=== PATIENT | male | born 1940 | race Caucasian/White ===

== ENCOUNTER 2017-04-30 09:05 | Outpatient (CLI) | payer MEDICARE, OTHER ==
[2017-04-30 12:43] LABS: BASOPHILS % (AUTO) 0.6 %; EOSINOPHILS # (AUTO) 0.3 10^3/uL (0.0-0.7); EOSINOPHILS % (AUTO) 3.2 %; HGB - HEMOGLOBIN 15.5 g/dL (14.0-18.0); LYMPHOCYTES # (AUTO) 1.3 10^3/uL (1.5-3.5); LYMPHOCYTES % (AUTO) 15.8 %; MEAN CORPUSCULAR HEMOGLOBIN 27.1 pg (27.0-31.0); MEAN CORPUSCULAR HGB CONC 33.6 g/dL (32.0-36.0); MEAN CORPUSCULAR VOLUME 80.7 fL (80.0-94.0); MEAN PLATELET VOLUME 8.7 fL (7.4-11.4); MONOCYTES # (AUTO) 0.8 10^3/uL (0.0-1.0); MONOCYTES % (AUTO) 9.8 %; NEUTROPHILS # (AUTO) 5.9 10^3/uL (1.5-6.6); NEUTROPHILS % (AUTO) 70.6 %; PLT - PLATELET COUNT 222 10^3/uL (130-450); RED CELL DISTRIBUTION WIDTH 14.2 % (12.0-15.0); WHITE BLOOD COUNT 8.3 x10^3/uL (4.8-10.8)
[2017-04-30 13:14] LABS: ALBUMIN 4.2 g/dL (3.2-5.5); ALBUMIN/GLOBULIN RATIO 1.4 (1.0-2.2); ALKALINE PHOSPHATASE 71 IU/L (42-121); ALT ALANINE AMINOTRANSFERASE 14 IU/L (10-60); AST ASPARTATE AMINOTRANSFERASE 13 IU/L (10-42); BUN - BLOOD UREA NITROGEN 17 mg/dL (6-20); CALCIUM 9.6 mg/dL (8.5-10.3); CARBON DIOXIDE - CO2 28 mmol/L (21-32); CHLORIDE 104 mmol/L (101-111); CHOLESTEROL 204 mg/dL; CREATININE 0.9 mg/dL (0.6-1.2); GFR - MDRD 82 (>89); GLUCOSE 93 mg/dL (70-100); HDL CHOLESTEROL 41 mg/dL; LDL CHOLESTEROL,CALCULATED 149 mg/dL; LDL/HDL RATIO 3.6 (<3.6); SODIUM 138 mmol/L (135-145); TOTAL PROTEIN 7.1 g/dL (6.7-8.2); VLDL CHOLESTEROL 14 mg/dL
== END 2017-04-30 09:06 ==
LOC: LAB.WCP 09:05
PROVIDERS: ATTEND Physician Assistant Medical
DX: Z51.81 Encounter for therapeutic drug level monitoring (principal); I10 Essential (primary) hypertension; E78.5 Hyperlipidemia, unspecified; Z12.5 Encounter for screening for malignant neoplasm of prostate
CPT/HCPCS: 36415; 80053; 80061; 84443; 85025; G0103; 83721; 84153

== ENCOUNTER 2017-05-18 13:22 | Outpatient (CLI) | payer MEDICARE, OTHER | END 2017-05-18 13:23 | disposition home or self-care (01) | LOC: DI 13:22 | PROVIDERS: ATTEND Family Medicine | DX: I48.91 Unspecified atrial fibrillation (principal); I51.7 Cardiomegaly | CPT/HCPCS: 93306 ==

== ENCOUNTER 2017-05-24 10:03 | Outpatient (CLI) | payer MEDICARE, OTHER ==
[2017-05-24] MEDS ORDERED: NITROGLYCERIN SL 0.4 MG TABLET SL ONE (10:04)
[2017-05-24] MEDS ORDERED: REGADENOSON 0.4 MG/5 ML SYRINGE IVP ONE ×2 (11:56→16:51)
--- NOTE | 2017-05-24 15:27 | CARDIAC PROCEDURE NOTE ---
DATE OF SERVICE: 05/24/2017 Physician: ROSSANA Alvarado PRIMARY CARE PHYSICIAN: Dr. Bernard Nunes PROCEDURE: Pharmaceutical stress test. PROCEDURE SYMPTOMS: New onset atrial fibrillation. CARDIAC RISK FACTORS: Include age and hypertension. PREVIOUS CARDIAC PROCEDURES: Include ETT. CURRENT SYMPTOMATOLOGY: None. MEDICATIONS HELD: None. CLINICAL HISTORY: A 77-year-old male without known coronary artery disease. INITIAL RESTING VITAL SIGNS: Blood pressure 164/90, heart rate 84, height 71 inches, weight 194 pounds, BMI 26.9. PROCEDURE AND FINDINGS: Patient identity and date verified, consent signed, pharmacologic check. Pharmacologic stress testing performed with Lexiscan at a dose of 0.4 mg/5 mL IV push. The heart rate lai to 110 beats per minute and the maximum blood pressure was 164/ 90. The patient developed symptoms about 5 minutes after receiving Lexiscan including 7/10 chest pain experienced as a tightening around his lower chest. He received nitroglycerin 0.4 mg sublingual and his chest pain dwindled to less than 1/10. He also experienced some dizziness and a headache. The resting ECG demonstrated a controlled atrial fibrillation with intraventricular conduction delay. There was no ST segment depression or T wave inversion. There was no ectopy. FINAL IMPRESSION 1. Overall quality of this study was good. 2. Negative stress electrocardiogram for ischemia by electrocardiographic criteria. 3. Nondiagnostic stress test clinically for angina. 4. No ectopy. 5. Await myocardial perfusion scan results. TD: 05/24/2017 15:26 JAMESON
--- NOTE | 2017-05-24 17:06 | Nuclear Medicine Report ---
EXAM: SINGLE-ISOTOPE PHARMACOLOGICAL STRESS TEST WITH REGADENOSON. SINGLE-ISOTOPE AND ONE-DAY REST/STRESS M YOCARDIAL PERFUSION SCANS WITH TOMOGRAPHIC IMAGING, QUANTITATIVE ANALYSIS EXAM DATE: 05/24/2017 04:55 PM. CLINICAL HISTORY: Atrial fibrillation. COMPARISON: None. TECHNIQUE: After the intravenous administration of 9.8 mCi of Tc-99m sestamibi, a rest myocardial perfusion scan was done with tomography. Motion correction was applied when appropriate. After an appropriate delay, pharmacological stress was performed with the infusion of 0.4 mg regadeno son per protocol. According to protocol, 37 mCi of Tc-99m sestamibi was injected for stress myocardia l perfusion scan. Motion correction was applied when appropriate. Gated images for wall motion analysis and ejection fraction calculation could not be obtained because of irregular heart beat. FINDINGS: Images show a small defect in distal inferior wall which may be slightly larger on the stre ss images compared to the rest images. No other convincing fixed or reversible perfusion defects. IMPRESSION: Small, mild distal inferior wall defect which may be slightly larger on stress compared to rest. No o ther convincing fixed or reversible perfusion defects. [facility] Referring Provider Line: [phone] SITE ID: [id number]
[2017-05-24 17:30] VITALS: BP 156/74
== END 2017-05-24 10:04 | disposition home or self-care (01) ==
LOC: DI 10:03
PROVIDERS: ATTEND Family Medicine
DX: I48.91 Unspecified atrial fibrillation (principal); I10 Essential (primary) hypertension; R07.89 Other chest pain
CPT/HCPCS: 78452; 93017; A9270; A9500; J2785

== ENCOUNTER 2018-01-11 08:00 | Outpatient (CLI) | payer MEDICARE, OTHER ==
[2018-01-11 14:39] LABS: ALBUMIN 3.9 g/dL (3.2-5.5); ALBUMIN/GLOBULIN RATIO 1.3 (1.0-2.2); ALKALINE PHOSPHATASE 72 IU/L (42-121); ALT ALANINE AMINOTRANSFERASE 16 IU/L (10-60); AST ASPARTATE AMINOTRANSFERASE 15 IU/L (10-42); BILIRUBIN,TOTAL 0.3 mg/dL (0.2-1.0); BUN - BLOOD UREA NITROGEN 17 mg/dL (6-20); CALCIUM 9.6 mg/dL (8.5-10.3); CARBON DIOXIDE - CO2 28 mmol/L (21-32); CHLORIDE 103 mmol/L (101-111); CHOL/HDL RATIO 5.2 (<5.0); CHOLESTEROL 206 mg/dL; CREATININE 0.9 mg/dL (0.6-1.2); GFR - MDRD 82 (>89); GLUCOSE 89 mg/dL (70-100); HDL CHOLESTEROL 40 mg/dL; LDL CHOLESTEROL,CALCULATED 144 mg/dL; LDL/HDL RATIO 3.6 (<3.6); SODIUM 138 mmol/L (135-145); TOTAL PROTEIN 6.8 g/dL (6.7-8.2); VLDL CHOLESTEROL 22 mg/dL
[2018-01-11 14:45] LABS: BASOPHILS % (AUTO) 0.2 %; EOSINOPHILS # (AUTO) 0.4 10^3/uL (0.0-0.7); HGB - HEMOGLOBIN 15.2 g/dL (14.0-18.0); LYMPHOCYTES # (AUTO) 1.3 10^3/uL (1.5-3.5); LYMPHOCYTES % (AUTO) 16.5 %; MEAN CORPUSCULAR HEMOGLOBIN 27.6 pg (27.0-31.0); MEAN CORPUSCULAR HGB CONC 32.4 g/dL (32.0-36.0); MEAN CORPUSCULAR VOLUME 85.2 fL (80.0-94.0); MONOCYTES # (AUTO) 0.8 10^3/uL (0.0-1.0); MONOCYTES % (AUTO) 10.7 %; NEUTROPHILS # (AUTO) 5.3 10^3/uL (1.5-6.6); NEUTROPHILS % (AUTO) 67.6 %; PLT - PLATELET COUNT 202 10^3/uL (130-450); RED BLOOD COUNT 5.51 10^6/uL (4.70-6.10); RED CELL DISTRIBUTION WIDTH 14.7 % (12.0-15.0); WHITE BLOOD COUNT 7.8 x10^3/uL (4.8-10.8)
[2018-01-11 15:38] LABS: PSA FREE 0.63 ng/mL (0.16-2.81)
[2018-01-11 15:39] LABS: PSA TOTAL 2.5 ng/mL (0.000-2.000)
== END 2018-01-11 08:01 | disposition home or self-care (01) ==
LOC: LAB.WCP 08:00
PROVIDERS: ATTEND Family Medicine
DX: I25.10 Atherosclerotic heart disease of native coronary artery without angina pectoris (principal); R97.20 Elevated prostate specific antigen [PSA]
CPT/HCPCS: 36415; 80053; 80061; 83721; 84154; 85025

== ENCOUNTER 2018-04-21 11:17 | Emergency (ER) | payer MEDICARE, OTHER ==
[2018-04-21 11:28] VITALS: BP 160/111
[2018-04-21] MEDS ORDERED: GLUCAGON 1 MG/ML VIAL IVP STA (12:03)
--- NOTE | 2018-04-21 12:05 | ED Physician Documentation ---
History of Present Illness - Stated complaint Stated Complaint: DIFFICULTY SWALLOWING/POSS BLOCKAGE - Chief complaint Chief Complaint: General - History obtained from History obtained from: Patient - History of Present Illness Timing: Last night (78-year-old gentleman with history of esophageal strictures, dilated 3 times in the 6 years ago. He was eating stew last night and feels like it stuck basically at the level of the clavicles and is unable to swallow his secretions but has no airway difficulty.) Review of Systems Throat: reports: Reviewed and negative Cardiac: reports: Reviewed and negative Respiratory: reports: Reviewed and negative PD PAST MEDICAL HISTORY - Past Medical History Cardiovascular: Hypertension, High cholesterol, Atrial fibrillation Respiratory: Asthma, Other - Past Surgical History General: Appendectomy - Allergies Allergies/Adverse Reactions: Allergies Allergy/AdvReac Type Severity Reaction Status Date / Time No Known Drug Allergies Allergy Verified 04/21/18 11:27 - Social History Does the pt smoke?: No Smoking Status: Never smoker PD ED PE NORMAL - Vitals Vital signs reviewed: Yes - General General: Alert and oriented X 3, No acute distress, Other (Speaking fine but holding suction to manage his secretions.) - HEENT HEENT: PERRL, EOMI, Pharynx benign - Neck Neck: Supple, no meningeal sign, No bony TTP, No bruit - Cardiac Cardiac: Other (Irregularly irregular without murmur) - Respiratory Respiratory: No respiratory distress, Clear bilaterally - Abdomen Abdomen: Soft, Non tender - Back Back: No CVA TTP, No spinal TTP - Derm Derm: Normal color, Warm and dry - Extremities Extremities: No edema, No calf tenderness / cord - Neuro Neuro: Alert and oriented X 3, Normal speech Results - Vitals Vitals: Vital Signs - 24 hr 04/21/18 11:22 Temperature 36.2 C L Heart Rate 70 Respiratory 14 Rate Blood Pressure 160/111 H O2 Saturation 100 Oxygen O2 Source Room air - Labs Labs: Laboratory Tests 04/21/18 04/21/18 04/21/18 12:06 12:06 12:06 WBC 7.9 RBC 5.66 Hgb 15.7 Hct 47.9 MCV 84.6 MCH 27.7 MCHC 32.8 RDW 14.2 Plt Count 222 MPV 9.0 Neut # (Auto) 5.9 Lymph # (Auto) 0.9 L Miller # (Auto) 0.9 Eos # (Auto) 0.2 Baso # (Auto) 0.0 Absolute Nucleated RBC 0.00 Nucleated RBC % 0.0 PT 15.5 H INR 1.4 H Sodium 138 Potassium 4.2 Chloride 105 Carbon Dioxide 27 Anion Gap 6.0 BUN 16 Creatinine 0.9 Estimated GFR (MDRD) 82 L Glucose 105 H Calcium 9.7 Total Bilirubin 1.0 AST 14 ALT 14 Alkaline Phosphatase 74 Total Protein 7.1 Albumin 4.0 Globulin 3.1 Albumin/Globulin Ratio 1.3 Lipase 29 PD MEDICAL DECISION MAKING - ED course ED course: After the administration of IV glucagon he vomited but felt like the food bolus in the past and was able to tolerate liquids without persistent difficulties. Departure - Departure Disposition: 01 Home, Self Care Clinical Impression: Esophageal obstruction due to food impaction Condition: Good Record reviewed to determine appropriate education?: Yes Instructions: ED Foreign Body Esophageal Rslv Comments: As discussed it seems reasonable for you to follow-up with a brake repairer. One option would be [facility] in [place], their phone number is [phone]. Chew your food well and return if worse. Your blood pressure was elevated today on check into the emergency department. This does not mean that you have hypertension, it is a common phenomenon to come to the emergency department and have elevated blood pressure. I recommend that you see your primary care physician within the week to have it rechecked when you are feeling better.
[2018-04-21] MEDS ORDERED: GLUCAGON 1 MG/ML VIAL ONE (12:23)
[2018-04-21 12:30] LABS: BASOPHILS % (AUTO) 0.3 %; EOSINOPHILS # (AUTO) 0.2 10^3/uL (0.0-0.7); EOSINOPHILS % (AUTO) 3.1 %; HGB - HEMOGLOBIN 15.7 g/dL (14.0-18.0); LYMPHOCYTES # (AUTO) 0.9 10^3/uL (1.5-3.5); MEAN CORPUSCULAR HEMOGLOBIN 27.7 pg (27.0-31.0); MEAN CORPUSCULAR HGB CONC 32.8 g/dL (32.0-36.0); MEAN CORPUSCULAR VOLUME 84.6 fL (80.0-94.0); MONOCYTES # (AUTO) 0.9 10^3/uL (0.0-1.0); MONOCYTES % (AUTO) 11.2 %; NEUTROPHILS # (AUTO) 5.9 10^3/uL (1.5-6.6); NEUTROPHILS % (AUTO) 74.4 %; PLT - PLATELET COUNT 222 10^3/uL (130-450); RED BLOOD COUNT 5.66 10^6/uL (4.70-6.10); RED CELL DISTRIBUTION WIDTH 14.2 % (12.0-15.0); WHITE BLOOD COUNT 7.9 x10^3/uL (4.8-10.8)
[2018-04-21 12:35] LABS: INR 1.4 (0.8-1.2); PT - PROTHROMBIN TIME 15.5 secs (9.9-12.6)
[2018-04-21 12:42] LABS: ALBUMIN/GLOBULIN RATIO 1.3 (1.0-2.2); CALCIUM 9.7 mg/dL (8.5-10.3); CREATININE 0.9 mg/dL (0.6-1.2); TOTAL PROTEIN 7.1 g/dL (6.7-8.2)
== END 2018-04-21 13:04 | disposition home or self-care (01) ==
LOC: ED 11:17
DX: K22.2 Esophageal obstruction (principal); I10 Essential (primary) hypertension; Z86.79 Personal history of other diseases of the circulatory system
CPT/HCPCS: 36415; 80053; 83690; 85025; 85610; 96374; 99283

== ENCOUNTER 2018-09-16 08:00 | Outpatient (CLI) | payer MEDICARE ==
[2018-09-16 15:41] LABS: CALCIUM 9.6 mg/dL (8.5-10.3)
[2018-09-16 15:59] LABS: BASOPHILS % (AUTO) 0.4 %; EOSINOPHILS # (AUTO) 0.3 10^3/uL (0.0-0.7); EOSINOPHILS % (AUTO) 3.9 %; HGB - HEMOGLOBIN 14.7 g/dL (14.0-18.0); LYMPHOCYTES % (AUTO) 14.5 %; MEAN CORPUSCULAR HEMOGLOBIN 27.2 pg (27.0-31.0); MEAN CORPUSCULAR HGB CONC 31.7 g/dL (32.0-36.0); MEAN PLATELET VOLUME 9.4 fL (7.4-11.4); MONOCYTES # (AUTO) 0.8 10^3/uL (0.0-1.0); NEUTROPHILS # (AUTO) 5.1 10^3/uL (1.5-6.6); NEUTROPHILS % (AUTO) 70.2 %; PLT - PLATELET COUNT 195 10^3/uL (130-450); RED BLOOD COUNT 5.41 10^6/uL (4.70-6.10); RED CELL DISTRIBUTION WIDTH 14.9 % (12.0-15.0); WHITE BLOOD COUNT 7.2 x10^3/uL (4.8-10.8)
== END 2018-09-16 23:59 | disposition home or self-care (01) ==
LOC: LAB.WCP 08:00
PROVIDERS: ATTEND Family Medicine
DX: I48.91 Unspecified atrial fibrillation (principal)
CPT/HCPCS: 36415; 80048; 85025

== ENCOUNTER 2018-09-26 10:09 | Outpatient (CLI) | payer MEDICARE | END 2018-09-26 23:59 | disposition home or self-care (01) | LOC: LAB.WCP 10:09 | PROVIDERS: ATTEND Family Medicine | DX: E04.1 Nontoxic single thyroid nodule (principal) | CPT/HCPCS: 36415; 84443 ==

== ENCOUNTER 2018-10-11 07:54 | Outpatient (CLI) | payer MEDICARE ==
--- NOTE | 2018-10-11 14:06 | Ultrasound Report ---
Reason: THYROID NODULE,JAW PAIN,ATRIAL FIBRILLATION,CAD Procedure Date: 10/11/2018 Accession Number: [id number] / [id number] Procedure: US - Head or Neck Soft Tissue CPT Code: FULL RESULT: EXAM: THYROID ULTRASOUND EXAM DATE: 10/11/2018 08:02 AM. CLINICAL HISTORY: THYROID NODULE,JAW PAIN,ATRIAL FIBRILLATION,CAD. COMPARISON: None. TECHNIQUE: Real time sonographic imaging of the thyroid was performed by the lockstitch shoulder joiner. Multiple payable representative static images were saved for review. FINDINGS: THYROID GLAND: Right Lobe: 3.9 x 1.6 x 1.7 cm, volume 4.9 cc. Normal background echotexture. Right Lobe Nodules: None. Left Lobe: 3.4 x 1.7 x 1.8 cm, volume 5 cc. Normal background echotexture. Left Lobe Nodules: None. Isthmus: 0.4 cm AP. Isthmic Nodules: None. LYMPH NODES: No adenopathy demonstrated in the central or lateral compartment. OTHER: None. IMPRESSION: Normal thyroid [facility]
--- NOTE | 2018-10-11 14:36 | Ultrasound Report ---
Reason: THYROID NODULE,JAW PAIN,ATRIAL FIBRILLATION,CAD Procedure Date: 10/11/2018 Accession Number: [id number] / [id number] Procedure: US - Carotid Doppler Complete CPT Code: FULL RESULT: EXAM: BILATERAL CAROTID AND VERTEBRAL ARTERY DUPLEX DOPPLER ULTRASOUND: EXAM DATE: 10/11/2018 08:30 AM CLINICAL HISTORY: THYROID NODULE, JAW PAIN, ATRIAL FIBRILLATION, CAD. COMPARISON: None. TECHNIQUE: Grayscale imaging, color Doppler, and duplex spectral Doppler were used to evaluate the carotid and vertebral arteries bilaterally. Static images were obtained. FINDINGS: Right common carotid artery has intimal hyperplasia and soft plaque. No significant stenosis. At the bifurcation, there is non-calcified plaque extending into the proximal right ICA and ECA without significant stenosis. Left common carotid artery has intimal hyperplasia and there is mild soft plaque extending into the origin of the left internal carotid artery without significant stenosis. Normal antegrade flow is present in bilateral vertebral arteries. VELOCITIES (cm/sec): Right CCA mid: PSV 63 cm/sec CCA dist: PSV 49 cm/sec ICA prox: PSV 53 cm/sec, EDV 16 cm/sec ICA mid: PSV 74 cm/sec, EDV 26 cm/sec ICA dist: PSV 64 cm/sec, EDV 18 cm/sec ECA: PSV 74 cm/sec Vert: PSV 43 cm/sec ICA/CCA: 1.2 Left CCA mid: PSV 66 cm/sec CCA dist: PSV 58 cm/sec ICA prox: PSV 58 cm/sec, EDV 17 cm/sec ICA mid: PSV 63 cm/sec, EDV 28 cm/sec ICA dist: PSV 47 cm/sec, EDV 19 cm/sec ECA: PSV 83 cm/sec Vert: PSV 40 cm/sec ICA/CCA: 0.9 ICA diameter stenosis: Right: <50% by velocity and <70% by NASCET criteria. Left: <50% by velocity and <70% by NASCET criteria. IMPRESSION: 1. No significant bilateral carotid artery plaquing. 2. In the right carotid artery there are no elevated carotid artery velocities to suggest hemodynamically significant stenosis. 3. In the left carotid artery there are no elevated carotid artery velocities to suggest hemodynamically significant stenosis. 4. Normal antegrade flow is present in bilateral vertebral arteries. General Recommendations: Stenosis =50% ICA - Follow-up ultrasound 6-12 months Stenosis <50% ICA - High Risk Patient with plaque - Follow-up ultrasound 1-2 years Normal Study but High Risk Patient - Follow-up ultrasound 3-5 years Management recommendations and diagnostic criteria are based on current IAC endorsed standards in Carotid Artery Stenosis: Grayscale and Doppler Ultrasound Diagnosis. Validated velocity measurements with angiographic measurements and velocity criteria are extrapolated from diameter data as defined by the Society of Radiologists in Ultrasound Consensus Conference Radiology 2003; 229;340-346. [facility]
== END 2018-10-11 07:55 | disposition home or self-care (01) ==
LOC: DI 07:54
PROVIDERS: ATTEND Family Medicine
DX: E04.1 Nontoxic single thyroid nodule (principal); R68.84 Jaw pain; I48.91 Unspecified atrial fibrillation; I25.10 Atherosclerotic heart disease of native coronary artery without angina pectoris
CPT/HCPCS: 76536; 93880

== ENCOUNTER 2018-10-31 15:32 | Outpatient (CLI) | payer MEDICARE ==
[2018-10-31 16:02] LABS: CHOL/HDL RATIO 4.5 (<5.0); CHOLESTEROL 186 mg/dL; HDL CHOLESTEROL 41 mg/dL; LDL CHOLESTEROL,CALCULATED 121 mg/dL; VLDL CHOLESTEROL 24 mg/dL
--- NOTE | 2018-11-01 10:53 | XRAY Report ---
Reason: SHORTNESS OF BREATH Procedure Date: 10/31/2018 Accession Number: [id number] / [id number] Procedure: XR - Chest 2 View X-Ray CPT Code: 77389 FULL RESULT: EXAM: CHEST RADIOGRAPHY EXAM DATE: 10/31/2018 04:15 PM. CLINICAL HISTORY: SHORTNESS OF BREATH. COMPARISON: CHEST 2 VIEW PA/LAT 05/10/2017 3:56 PM. TECHNIQUE: 2 views. FINDINGS: Lungs/Pleura: No focal opacities evident. No pleural effusion. No pneumothorax. Normal volumes. Mediastinum: Borderline cardiomegaly. There is thoracic aortic tortuosity. Other: None. IMPRESSION: No acute intrathoracic plain film abnormality. [facility]
== END 2018-10-31 15:33 | disposition home or self-care (01) ==
LOC: LAB 15:32 → DI 15:33
PROVIDERS: ATTEND Internal Medicine Cardiovascular Disease
DX: R06.02 Shortness of breath (principal); E78.5 Hyperlipidemia, unspecified
CPT/HCPCS: 36415; 71046; 80061; 83721

== ENCOUNTER 2018-11-27 06:34 | Outpatient (CLI) | payer MEDICARE ==
--- NOTE | 2018-11-28 10:02 | Ultrasound Report ---
Reason: NICOTINE DEPENDENCE, CIGARETTES, IN REMISSION Procedure Date: 11/27/2018 Accession Number: [id number] / [id number] Procedure: US - Aorta Screening CPT Code: FULL RESULT: EXAM: AORTIC DOPPLER ULTRASOUND EXAM DATE: 11/27/2018 07:50 AM. CLINICAL HISTORY: Nicotine dependence, cigarettes, in remission. COMPARISON: None. TECHNIQUE: Real-time sonographic imaging of retroperitoneal vascular structures, including color-flow, Doppler flow and spectral analysis was performed by the press setter. Multiple small business representative static images were saved for review. FINDINGS: Aorta: The abdominal aorta was visualized, somewhat limited but adequate for screening purposes. Ectasia of the distal abdominal aorta is suggestive of an abdominal aortic aneurysm, visualization is suboptimal. There is also questionable ectasia of the upper abdominal aorta, this measurement is possibly exacerbated by limitations in technique. Following measurements are obtained: Aorta: Proximal: Sagittal AP: 2.9 x 2.9 cm. Mid: Transverse: 2.2 x 2.2 cm. Distal: Transverse: 2.6 x 2.8 cm. Caliber WNL: No Plaque visualized: Yes. Iliacs: Right Iliac: Transverse: 1.1 x 0.9 cm. Left Iliac: Transverse: 1.0 x 1.2 cm. Iliac Vessels: The visualized proximal common iliac arteries are normal in caliber. Other: None. IMPRESSION: Limited examination suggestive of an abdominal aortic aneurysm. Recommendation: Further interrogation by CTA of the abdomen to characterize suspected aneurysm versus CT examination on annual follow-up given relatively small caliber at this time. [facility]
== END 2018-11-27 06:35 | disposition home or self-care (01) ==
LOC: DI 06:34
PROVIDERS: ATTEND Family Medicine
DX: F17.211 Nicotine dependence, cigarettes, in remission (principal); I71.4 Abdominal aortic aneurysm, without rupture
CPT/HCPCS: 76706

== ENCOUNTER 2019-05-22 08:00 | Outpatient (CLI) | payer MEDICARE ==
[2019-05-22 12:56] LABS: ALKALINE PHOSPHATASE 69 IU/L (42-121); ALT ALANINE AMINOTRANSFERASE 26 IU/L (10-60); AST ASPARTATE AMINOTRANSFERASE 21 IU/L (10-42); BILIRUBIN,DIRECT 0.1 mg/dL (0.1-0.5); BILIRUBIN,TOTAL 0.7 mg/dL (0.2-1.0); CHOL/HDL RATIO 3.5 (<5.0); CHOLESTEROL 148 mg/dL; HDL CHOLESTEROL 42 mg/dL; LDL CHOLESTEROL,CALCULATED 90 mg/dL; LDL/HDL RATIO 2.1 (<3.6); TOTAL PROTEIN 7.1 g/dL (6.7-8.2); VLDL CHOLESTEROL 16 mg/dL
== END 2019-05-22 23:59 | disposition home or self-care (01) ==
LOC: LAB.WCP 08:00
PROVIDERS: ATTEND Internal Medicine Cardiovascular Disease
DX: Z79.899 Other long term (current) drug therapy (principal)
CPT/HCPCS: 36415; 80061; 80076; 83721

== ENCOUNTER → 2019-10-24 | Outpatient (CLI) | payer MEDICARE ==
[2019-10-24 18:53] LABS: BASOPHILS % (AUTO) 0.2 %; EOSINOPHILS # (AUTO) 0.4 10^3/uL (0.0-0.7); HGB - HEMOGLOBIN 14.6 g/dL (14.0-18.0); LYMPHOCYTES # (AUTO) 1.3 10^3/uL (1.5-3.5); LYMPHOCYTES % (AUTO) 15.1 %; MEAN CORPUSCULAR HEMOGLOBIN 27.1 pg (27.0-31.0); MEAN CORPUSCULAR HGB CONC 30.6 g/dL (32.0-36.0); MEAN CORPUSCULAR VOLUME 88.7 fL (80.0-94.0); MONOCYTES % (AUTO) 11.6 %; NEUTROPHILS % (AUTO) 68.6 %; PLT - PLATELET COUNT 232 10^3/uL (130-450); RED BLOOD COUNT 5.38 10^6/uL (4.70-6.10); RED CELL DISTRIBUTION WIDTH 14.1 % (12.0-15.0); WHITE BLOOD COUNT 8.7 x10^3/uL (4.8-10.8)
[2019-10-24 19:02] LABS: ALBUMIN/GLOBULIN RATIO 1.3 (1.0-2.2); ALKALINE PHOSPHATASE 74 IU/L (42-121); ALT ALANINE AMINOTRANSFERASE 20 IU/L (10-60); AST ASPARTATE AMINOTRANSFERASE 16 IU/L (10-42); BILIRUBIN,TOTAL 0.9 mg/dL (0.2-1.0); BUN - BLOOD UREA NITROGEN 21 mg/dL (6-20); CALCIUM 9.9 mg/dL (8.5-10.3); CARBON DIOXIDE - CO2 27 mmol/L (21-32); CHLORIDE 104 mmol/L (101-111); CHOL/HDL RATIO 3.7 (<5.0); CHOLESTEROL 128 mg/dL; GLUCOSE 91 mg/dL (70-100); HDL CHOLESTEROL 35 mg/dL; LDL CHOLESTEROL,CALCULATED 69 mg/dL; SODIUM 138 mmol/L (135-145); TOTAL PROTEIN 7.1 g/dL (6.7-8.2); VLDL CHOLESTEROL 24 mg/dL
== END ==
LOC: LAB.WCP 17:11
PROVIDERS: ATTEND Family Medicine
DX: I10 Essential (primary) hypertension (principal); E78.5 Hyperlipidemia, unspecified; I48.91 Unspecified atrial fibrillation
CPT/HCPCS: 36415; 80053; 80061; 83721; 84443; 85025

== ENCOUNTER 2020-01-09 08:25 | Day surgery (SDC) | payer MEDICARE ==
[2020-01-09] MEDS ORDERED: fentaNYL 250 MCG/5 ML VIAL IVP ONE (08:26)
[2020-01-09] MEDS ORDERED: MIDAZOLAM 2 MG/2 ML VIAL IVP ONE (08:26)
[2020-01-09] MEDS ORDERED: LACTATED RINGERS 1,000 ML IV ONE (08:34)
[2020-01-09] MEDS ORDERED: IPRATROPIUM/ALBUTEROL 3 ML NEB INH ONE (09:29)
[2020-01-09] MEDS ORDERED: IPRATROPIUM/ALBUTEROL 3 ML NEB INH STA (09:29)
[2020-01-09] MEDS ORDERED: LACTATED RINGERS 300 ML IV ONE (10:45)
[2020-01-09 11:02] VITALS: BP 123/86
== END 2020-01-09 08:26 | disposition home or self-care (01) ==
LOC: SDS 08:25
PROVIDERS: ATTEND Surgery
PROC: 0DBM8ZZ Excision of Descending Colon, Via Natural or Artificial Opening Endoscopic (ICD-10-PCS; 2020-01-09)
PROC: 0DBN8ZZ Excision of Sigmoid Colon, Via Natural or Artificial Opening Endoscopic (ICD-10-PCS; principal; 2020-01-09 09:30)
DX: Z12.11 Encounter for screening for malignant neoplasm of colon (principal); I48.91 Unspecified atrial fibrillation; Z79.01 Long term (current) use of anticoagulants; D12.4 Benign neoplasm of descending colon; K63.5 Polyp of colon; K57.30 Diverticulosis of large intestine without perforation or abscess without bleeding
CPT/HCPCS: 45380; 45385; J3010; J7120

== ENCOUNTER 2020-01-11 07:00 | Outpatient (CLI) | payer MEDICARE ==
--- NOTE | 2020-01-11 09:50 | Ultrasound Report ---
PROCEDURE: Retroperitoneal Limited INDICATIONS: LEFT TESTICULAR MASS, AAA TECHNIQUE: Real time scanning was performed of the aorta and iliac arteries, with image documentatio n. COMPARISON: Ultrasound of the abdominal aorta dated 11/27/2018 FINDINGS: Aorta: Proximal aortic diameter measures 3.1 cm. Mid-aorta measures 2.2 cm. Distal aortic diameter is 3.2 cm. Iliac arteries: Right common iliac artery measures 1.1 cm. Left common iliac artery measures 1.1 cm . IMPRESSION: Mild fusiform dilatation of the distal abdominal aorta. Findings of slightly increased in extent when compared with the study dated 11/27/2018 where the distal aorta measured 2.8 cm in AP diameter. May de la garza sonographic surveillance recommended. Reviewed by: Beata Gomez MD on 01/11/2020 9:49 AM PDT Approved by: Beata Gomez MD on 01/11/2020 9:49 AM PDT Station ID: [id number]
--- NOTE | 2020-01-11 09:54 | Ultrasound Report ---
PROCEDURE: Testicle INDICATIONS: LEFT TESTICULAR MASS, AAA TECHNIQUE: Real-time scanning was performed of the scrotum and testicles, with image documentation. Color and p ulse Doppler interrogation was performed of both testicles. COMPARISON: None. FINDINGS: Right: Testicle is normal in size at 4.3 x 2.5 x 2.5 cm, and homogenous in echotexture. Epididymis is normal in overall size and morphology. There is a small right hydrocele. No varicocele. Overlying scrotal skin is normal in thickness. Punctate microcalcifications are noted throughout the right marj ticle. Left: Testicle is normal in size at 4.2 x 2.3 x 3.0 cm, and homogeneous in echotexture. Epididymis is normal in overall size and morphology. There is a 1.1 cm anechoic left epididymal head cyst. There is a small hydrocele. No varicocele. Overlying scrotal skin is normal in thickness. Punctate microc alcifications are noted throughout the left testicle. Doppler: Color and pulse Doppler demonstrate normal and symmetric arterial flow in both testicles. IMPRESSION: 1. No sonographic evidence for a left testicular mass. 2. Left epididymal head cyst measuring 1.1 cm in diameter. It is unclear whether this may correspond with the questionable mass. 3. Testicular microcalcifications bilaterally. 4. Small bilateral hydroceles. Reviewed by: Beata Gomez MD on 01/11/2020 9:53 AM PDT Approved by: Beata Gomez MD on 01/11/2020 9:53 AM PDT Station ID: [id number]
== END 2020-01-11 07:01 | disposition home or self-care (01) ==
LOC: DI 07:00
PROVIDERS: ATTEND Family Medicine
DX: I77.811 Abdominal aortic ectasia (principal); N50.3 Cyst of epididymis; N43.3 Hydrocele, unspecified; N50.89 Other specified disorders of the male genital organs
CPT/HCPCS: 76775; 76870

== ENCOUNTER 2020-06-04 13:33 | Emergency (ER) | payer MEDICARE ==
--- NOTE | 2020-06-04 13:47 | ED Physician Documentation ---
PD HPI CHEST PAIN - Stated complaint Stated Complaint: CHEST PX/BACK PX - Chief complaint Chief Complaint: Cardiac - History obtained from History obtained from: Patient - History of Present Illness Timing - onset: How many hours ago (1-2), Today Timing - onset during: Light activity Timing - duration: Hours Timing - details: Abrupt onset (onset of sharp, significant, pleuritic right scapular area pain today. He is 7 weeks post CABG at [place] (mid April) and has been healing well. Normal activity lately. No cough nor dyspnea. No strenuous activity today. He states BP has been normal post surgery. On Eliquis for another month or so.), Still present Quality: Sharp, Pain Location: Right shoulder/arm, Upper back Radiation: No: Jaw, Neck Worsened by: Inspiration, Movement Associated symptoms: No: Shortness of air, Nausea, Feeling faint / dizzy, Cough Similar symptoms before: Has not had sx before Recently seen: Surgery (Mid Apr [facility] in [place]), Other (denies any COVID exposures) Review of Systems Constitutional: denies: Fever, Chills Nose: denies: Rhinorrhea / runny nose, Congestion Throat: denies: Sore throat Cardiac: reports: Chest pain / pressure, Pedal edema (mild in legs after surgery.). denies: Palpitations, Calf pain Respiratory: denies: Dyspnea, Cough Skin: denies: Rash, Lesions Neurologic: denies: Near syncope, Altered mental status PD PAST MEDICAL HISTORY - Past Medical History Cardiovascular: Hypertension, High cholesterol, Atrial fibrillation Respiratory: Asthma, Other - Past Surgical History General: Appendectomy - Present Medications Home Medications: Ambulatory Orders Medication Instructions Recorded Confirmed Apixaban [Eliquis] 5 mg PO BID 01/08/20 01/09/20 Aspirin [Adult Aspirin Regimen] 81 mg PO DAILY 01/08/20 01/09/20 Metoprolol Succinate 100 mg PO BID 01/08/20 01/09/20 Rosuvastatin Calcium 10 mg PO DAILY 01/08/20 01/09/20 Valsartan 40 mg PO DAILY 01/08/20 01/09/20 amLODIPine [Norvasc] 5 mg PO DAILY 01/08/20 01/09/20 Fluticasone/Salmeterol [Advair Hfa 2 inhaler INH DAILY 01/09/20 01/09/20 230-21 Mcg Inhaler] HYDROcod/ACETAM 5/325 [[place] 5/325] 1 ea PO Q6H PRN #20 tablet 06/04/20 cephALEXin [Keflex] 500 mg PO TID #20 cap 06/04/20 dexAMETHasone [Decadron] 4 mg PO DAILY #5 tablet 06/04/20 - Allergies Allergies/Adverse Reactions: Allergies Allergy/AdvReac Type Severity Reaction Status Date / Time No Known Drug Allergies Allergy Verified 06/04/20 13:42 - Social History Does the pt smoke?: No Smoking Status: Never smoker PD ED PE NORMAL - Vitals Vital signs reviewed: Yes - General General: Alert and oriented X 3, Well developed/nourished, Other (appears in pain and worse with breathing. ) - HEENT HEENT: Pharynx benign - Neck Neck: Supple, no meningeal sign, No adenopathy - Cardiac Cardiac: RRR, No rub - Respiratory Respiratory: Clear bilaterally - Abdomen Abdomen: Normal bowel sounds, Soft, Non tender, Non distended - Back Back: No CVA TTP, No spinal TTP - Derm Derm: Normal color, Warm and dry - Extremities Extremities: Normal ROM s pain, No calf tenderness / cord, Other (1+ edema both lower legs. Left forearm host graft site without signs of infection. ) - Neuro Neuro: Alert and oriented X 3, No motor deficit, Normal speech Results - Vitals Vitals: Vital Signs - 24 hr 06/04/20 06/04/20 06/04/20 13:38 14:11 14:30 Temperature 36.0 C L Heart Rate 99 64 62 Respiratory 22 20 19 Rate Blood Pressure 181/90 H 185/95 H 163/100 H O2 Saturation 97 98 97 06/04/20 06/04/20 06/04/20 15:30 16:00 16:30 Temperature Heart Rate 66 63 89 Respiratory 17 20 19 Rate Blood Pressure 155/99 H 171/114 H 185/99 H O2 Saturation 95 98 100 Oxygen O2 Source Room air - EKG (time done) 13:37 Rate: Rate (enter#) (64) Rhythm: Atrial fibrillation [place]: Normal QRS: Normal Ischemia: Normal ST segments. No: ST elevation c/w ischemia, ST depression - Labs Labs: Laboratory Tests 06/04/20 06/04/20 06/04/20 13:47 13:47 13:47 WBC 9.6 RBC 4.75 Hgb 12.8 L Hct 42.6 MCV 89.7 MCH 26.9 L MCHC 30.0 L RDW 15.9 H Plt Count 255 MPV 11.2 Neut # (Auto) 7.2 H Lymph # (Auto) 0.9 L Chambers # (Auto) 1.3 H Eos # (Auto) 0.2 Baso # (Auto) 0.0 Absolute Nucleated RBC 0.00 Nucleated RBC % 0.0 PT 19.4 H INR 1.8 H APTT 42.5 H D-Dimer 232.3 Sodium 140 Potassium 4.8 Chloride 104 Carbon Dioxide 27 Anion Gap 9.0 BUN 21 H Creatinine 0.9 Estimated GFR (MDRD) 81 L Glucose 76 Calcium 10.3 Total Bilirubin 0.8 AST 16 ALT 28 Alkaline Phosphatase 108 Troponin I High Sens B-Natriuretic Peptide Total Protein 7.7 Albumin 4.1 Globulin 3.6 Albumin/Globulin Ratio 1.1 Lipase 26 06/04/20 06/04/20 13:47 13:47 WBC RBC Hgb Hct MCV MCH MCHC RDW Plt Count MPV Neut # (Auto) Lymph # (Auto) Chambers # (Auto) Eos # (Auto) Baso # (Auto) Absolute Nucleated RBC Nucleated RBC % PT INR APTT D-Dimer Sodium Potassium Chloride Carbon Dioxide Anion Gap BUN Creatinine Estimated GFR (MDRD) Glucose Calcium Total Bilirubin AST ALT Alkaline Phosphatase Troponin I High Sens 3.5 B-Natriuretic Peptide 482 H Total Protein Albumin Globulin Albumin/Globulin Ratio Lipase - Rads (name of study) chest xray Radiology: Prelim report reviewed (no acute process), See rad report Chest CT-A emphasis aorta Radiology: Prelim report reviewed (No aortic process (dissection nor aneurysm). There are small bibasilar effusions and infiltrates c/w atelectasis vs pneumonia. Small pericardial effusion. ), See rad report PD MEDICAL DECISION MAKING - ED course Complexity details: reviewed results (No aortic process, which was major concern. Small infiltrates. Consider atelectasis, though he has been active. ), considered differential (concern for aoretic process, given recent CABG, BP elevated, and pleuritc back pain. Also consider graft failure, PTX, pneumonia, post-procedure inflammation (Dress[employer]) though a bit far out in time for that (7 weeks). ), d/w patient Departure - Departure Disposition: 01 Home, Self Care Clinical Impression: Lung infiltrate on CT, Status post aorto-coronary artery bypass graft Acute back pain Qualifiers: Back pain location: thoracic back pain Back pain laterality: unspecified Qualified Code(s): M54.6 - Pain in thoracic spine Condition: Stable Record reviewed to determine appropriate education?: Yes Instructions: ED Chest Pain Pleurisy Follow-Up: Bernard Nunes DO [Primary Care Provider] - Prescriptions: dexAMETHasone [Decadron] 4 mg PO DAILY #5 tablet cephALEXin [Keflex] 500 mg PO TID #20 cap HYDROcod/ACETAM 5/325 [[place] 5/325] 1 ea PO Q6H PRN #20 tablet PRN Reason: Pain Comments: No signs of heart muscle injury (graft occlusion etc.) nor heart failure per se. No aortic problems. There is a little bit of fluid around the base of the lungs and the CT report states of a mild amount of fluid around the heart sac. There is also some infiltrates in the lung that could be early infectious or just inadequate deep breaths. This combination can occur after heart surgery with inflammatory changes develop. (This can be called Alina's syndrome). This seems a rather delayed post surgery for this. We can treat your symptoms with anti-inflammatories as well as medication for the pain. Antibiotic for potential early infection, since CT reading does raise pneumonia as one possibility for the finding. Follow-up with your fitness studies teacher as planned and with your primary care if not improved well over the next several days to week. Discharge Date/Time: 06/04/20 16:37
[2020-06-04] MEDS ORDERED: KETOROLAC 15 MG/ML VIAL IVP STA (14:07)
[2020-06-04] MEDS ORDERED: MORPHINE 10 MG/ML VIAL IVP STA (14:07)
[2020-06-04 14:16] LABS: BASOPHILS % (AUTO) 0.2 %; EOSINOPHILS # (AUTO) 0.2 10^3/uL (0.0-0.7); EOSINOPHILS % (AUTO) 1.7 %; HCT - HEMATOCRIT 42.6 % (42.0-52.0); HGB - HEMOGLOBIN 12.8 g/dL (14.0-18.0); LYMPHOCYTES # (AUTO) 0.9 10^3/uL (1.5-3.5); MEAN CORPUSCULAR HEMOGLOBIN 26.9 pg (27.0-31.0); MEAN CORPUSCULAR VOLUME 89.7 fL (80.0-94.0); MEAN PLATELET VOLUME 11.2 fL (7.4-11.4); MONOCYTES # (AUTO) 1.3 10^3/uL (0.0-1.0); MONOCYTES % (AUTO) 13.3 %; NEUTROPHILS # (AUTO) 7.2 10^3/uL (1.5-6.6); NEUTROPHILS % (AUTO) 75.6 %; PLT - PLATELET COUNT 255 10^3/uL (130-450); RED BLOOD COUNT 4.75 10^6/uL (4.70-6.10); RED CELL DISTRIBUTION WIDTH 15.9 % (12.0-15.0); WHITE BLOOD COUNT 9.6 x10^3/uL (4.8-10.8)
[2020-06-04 14:30] LABS: ALBUMIN 4.1 g/dL (3.2-5.5); ALBUMIN/GLOBULIN RATIO 1.1 (1.0-2.2); BILIRUBIN,TOTAL 0.8 mg/dL (0.2-1.0); CALCIUM 10.3 mg/dL (8.5-10.3); CREATININE 0.9 mg/dL (0.6-1.2); POTASSIUM 4.8 mmol/L (3.5-5.0); TOTAL PROTEIN 7.7 g/dL (6.7-8.2)
--- NOTE | 2020-06-04 14:30 | XRAY Report ---
PROCEDURE: Chest 1 View X-Ray INDICATIONS: Chest Pain TECHNIQUE: One view of the chest was acquired. COMPARISON: 05/10/2017 FINDINGS: Surgical changes and devices: Sternotomy wires. Lungs and pleura: No right pleural effusions or pneumothorax. Blunting of the left costophrenic angl e and cannot exclude trace left pleural fluid. Increased bilateral ill-defined patchy groundglass opa cities are seen in both lung bases. Mediastinum: Mediastinal contours appear normal. Heart size is stable. Bones and chest wall: No suspicious bony lesions. Overlying soft tissues appear unremarkable. IMPRESSION: Increased patchy bibasilar ill-defined opacities raise the possibility of pulmonary edema. Technicall y cannot exclude early or underlying pneumonia therefore please correlate clinically. If there is per sistent clinical diagnostic uncertainty, recommend short interval follow-up chest radiographs after t reatment for further assessment. Reviewed by: Blane Baugh MD on 06/04/2020 2:29 PM PST Approved by: Blane Baugh MD on 06/04/2020 2:29 PM PST Station ID: [id number]
[2020-06-04 14:36] LABS: D-DIMER 232.3 ng/mL (200.0-255.0)
[2020-06-04 14:40] LABS: INR 1.8 (0.8-1.2); PT - PROTHROMBIN TIME 19.4 secs (9.9-12.6)
[2020-06-04 14:47] LABS: PARTIAL THROMBOPLASTIN TIME 42.5 secs (24.9-33.3)
[2020-06-04] MEDS ORDERED: IOVERSOL 320 100 ML VIAL IVP ONE ×2 (15:05→15:27)
--- NOTE | 2020-06-04 15:32 | CT Report ---
PROCEDURE: ANGIO CHEST W/WO INDICATIONS: acute back/chest pain; concern for aortic process CONTRAST: IV CONTRAST: Optiray 320 ml: 100 PO CONTRAST: *NO PO CONTRAST TECHNIQUE: After the administration of intravenous contrast, 2 mm thick sections acquired from the pulmonary api jennifer to the upper abdomen. 3-dimensional maximum intensity projection (MIP) coronal and sagittal refor mats were then acquired through the thorax. For radiation dose reduction, the following was used: au tomated exposure control, adjustment of mA and/or kV according to patient size. COMPARISON: Retroperitoneal ultrasound dated 01/11/2020 FINDINGS: Image quality: Excellent. Thoracic aorta: Moderate amount of atherosclerotic calcifications are noted scattered in thoracic aor ta and coronary arteries. There is no thoracic aortic aneurysm. Normal contrast opacification is seen in thoracic aorta without aortic dissection. Visualized portion of upper abdominal aorta shows no ev idence of aneurysm or dissection. Pulmonary arteries: Pulmonary arteries are normal in size, and demonstrate no intraluminal filling d efects to suggest central pulmonary embolism. Lungs and pleura: Biapical scarring is seen. Hazy groundglass opacities are seen in posterior aspect of bilateral lung sharma more prominent on the right side suggestive of pneumonitis versus mild pulmo nary edema. There is small left pleural effusion and trace right pleural effusion with bibasilar depe ndent atelectasis/small infiltrates. No pneumothorax. Calcified granuloma are seen in posterior later al aspect of left lower lobe and measures up to 8 mm in size. Central and peripheral airways are palencia nt. Mediastinum: Heart size is enlarged with small amount of pericardial effusion measures up to 7.5 mm in thickness adjacent to left atrium. Median sternotomy wires and surgical clips are seen. No mediast inal or hilar adenopathy by size criteria. Esophagus is normal in caliber, without hiatal hernia. Bones and chest wall: No suspicious bony lesions. Ribs and thoracic spine appear intact throughout. Mild degenerative endplate changes are noted throughout thoracic spine. The thyroid is normal. No a xillary or supraclavicular adenopathy. Abdomen: Visualized upper abdominal solid organs appear normal in the early arterial phase of enhanc ement. IMPRESSION: 1. No thoracic aortic aneurysm or dissection. No evidence of pulmonary emboli. 2. Cardiomegaly and small amount of pericardial effusion. No mediastinal or hilar lymphadenopathy. Po stsurgical changes from prior median sternotomy. Moderate amount of atherosclerotic disease is seen i n thoracic aorta and coronary vessels. 3. Small left pleural effusion and trace right pleural effusion with adjacent bibasilar small infiltr ate/atelectasis. Hazy groundglass opacities are seen in posterior aspect of bilateral lung field sugg estive of mild pulmonary edema versus pneumonitis. No pneumothorax. Airway is patent. Reviewed by: Luisito Campos MD on 06/04/2020 3:30 PM PST Approved by: Luisito Campos MD on 06/04/2020 3:30 PM PST Station ID: [id number]
[2020-06-04] MEDS ORDERED: cephALEXin 250 MG CAPSULE PO STA (15:50)
[2020-06-04] MEDS ORDERED: DEXAMETHASONE 10 MG/ML VIAL IVP STA (15:50)
[2020-06-04 16:38] VITALS: BP 185/99
== END 2020-06-04 16:37 | disposition home or self-care (01) ==
LOC: ED 13:33
DX: R91.8 Other nonspecific abnormal finding of lung field (principal); I31.3 Pericardial effusion (noninflammatory); J90 Pleural effusion, not elsewhere classified; M54.6 Pain in thoracic spine; Z95.1 Presence of aortocoronary bypass graft; I10 Essential (primary) hypertension; I48.91 Unspecified atrial fibrillation; Z79.01 Long term (current) use of anticoagulants; Z79.82 Long term (current) use of aspirin
CPT/HCPCS: 36415; 71045; 71275; 80053; 83690; 83880; 84484; 85025; 85379; 85610; 85730; 93005; 96374; 96375; 99284; A9270; Q9967

== ENCOUNTER 2020-06-16 11:02 | Outpatient (CLI) | payer MEDICARE ==
--- NOTE | 2020-06-16 13:20 | XRAY Report ---
PROCEDURE: Chest 2 View X-Ray INDICATIONS: PLEURISY TECHNIQUE: 2 view(s) of the chest. COMPARISON: Chest x-ray, 06/04/2020. FINDINGS: Surgical changes and devices: Sternotomy and CABG. Lungs and pleura: Chronic central prominence consistent with chronic CHF. Small pleural effusions or pleural thickening. No pneumothorax. Mediastinum: Mediastinal contours are normal. Heart size is mildly increased. Bones and chest wall: No suspicious bony abnormalities. Soft tissues appear unremarkable. IMPRESSION: Chronic CHF. Reviewed by: Rose Abbasi MD on 06/16/2020 1:19 PM PDT Approved by: Rose Abbasi MD on 06/16/2020 1:19 PM PDT Station ID: [id number]
== END 2020-06-16 11:03 | disposition home or self-care (01) ==
LOC: DI 11:02
PROVIDERS: ATTEND Family Medicine
DX: I50.9 Heart failure, unspecified (principal)

== ENCOUNTER 2020-07-20 08:39 | Outpatient (CLI) | payer MEDICARE | END 2020-07-20 08:40 | disposition home or self-care (01) | LOC: DI 08:39 | PROVIDERS: ATTEND Family Medicine | DX: I51.7 Cardiomegaly (principal); I35.8 Other nonrheumatic aortic valve disorders; I48.91 Unspecified atrial fibrillation | CPT/HCPCS: 93306 ==

== ENCOUNTER 2020-10-11 12:19 | Outpatient (CLI) | payer MEDICARE ==
[2020-10-11 18:01] LABS: HGB - HEMOGLOBIN 14.5 g/dL (14.0-18.0); MEAN CORPUSCULAR HEMOGLOBIN 26.5 pg (27.0-31.0); MEAN CORPUSCULAR HGB CONC 29.6 g/dL (32.0-36.0); MEAN CORPUSCULAR VOLUME 89.4 fL (80.0-94.0); MEAN PLATELET VOLUME 11.5 fL (7.4-11.4); RED BLOOD COUNT 5.48 10^6/uL (4.70-6.10); RED CELL DISTRIBUTION WIDTH 17.5 % (12.0-15.0); WHITE BLOOD COUNT 7.9 x10^3/uL (4.8-10.8)
[2020-10-11 18:20] LABS: BUN - BLOOD UREA NITROGEN 22 mg/dL (6-20); CALCIUM 9.6 mg/dL (8.5-10.3); CARBON DIOXIDE - CO2 29 mmol/L (21-32); CHLORIDE 102 mmol/L (101-111); GFR - MDRD 72 (>89); GLUCOSE 105 mg/dL (70-100); POTASSIUM 4.4 mmol/L (3.5-5.0); SODIUM 137 mmol/L (135-145); URIC ACID 6.2 mg/dL (2.6-7.2)
[2020-10-11 18:55] LABS: CRP - C-REACTIVE PROTEIN < 1.0 mg/dL (0-1.0)
== END 2020-10-11 12:20 | disposition home or self-care (01) ==
LOC: LAB.N 12:19
PROVIDERS: ATTEND Family Medicine
DX: M79.673 Pain in unspecified foot (principal)
CPT/HCPCS: 36415; 80048; 84550; 85027; 86140

== ENCOUNTER 2020-10-14 09:02 | Outpatient (CLI) | payer MEDICARE ==
--- NOTE | 2020-10-14 11:47 | XRAY Report ---
PROCEDURE: Foot 3 View BILAT INDICATIONS: PLEURISY,FOOT PAIN TECHNIQUE: 3 views of each foot were acquired. COMPARISON: None. FINDINGS: Bones: No acute fractures or dislocations. No suspicious bony lesions. Mild hallux valgus bilatera lly. Scattered degenerative changes are seen in the interphalangeal joints of the toes. Mild degenera tive spurring is seen at the dorsal talonavicular joints, and slightly more prominent on the right wi th a small ossification that may be related to prior trauma. Soft tissues: No suspicious soft tissue calcification. IMPRESSION: 1. No acute osseous abnormality. If symptoms persist with conservative management, further evaluatio n with CT or MRI may be obtained. 2. Mild hallux valgus. Reviewed by: Vipul Galvez MD on 10/14/2020 11:46 AM PDT Approved by: Vipul Galvez MD on 10/14/2020 11:46 AM PDT Station ID: [id number]
--- NOTE | 2020-10-14 16:03 | XRAY Report ---
PROCEDURE: Chest 2 View X-Ray INDICATIONS: PLEURISY,FOOT PAIN TECHNIQUE: 2 view(s) of the chest. COMPARISON: 06/16/2020 FINDINGS: Surgical changes and devices: Post CABG changes are seen. Lungs and pleura: No pleural effusions or pneumothorax. Mild generalized interstitial prominence is seen. Mediastinum: The aorta demonstrates prominence and tortuosity. Heart size is moderately enlarged. Bones and chest wall: No suspicious bony abnormalities. Age-appropriate degenerative changes are se en. Soft tissues appear unremarkable. IMPRESSION: Cardiomegaly and interstitial prominence, which is consistent with CHF. Reviewed by: Eliezer Cervantes MD on 10/14/2020 3:02 PM ABDIRAHMAN Approved by: Eliezer Cervantes MD on 10/14/2020 3:02 PM ABDIRAHMAN Station ID: [id number]
== END 2020-10-14 09:03 | disposition home or self-care (01) ==
LOC: DI 09:02
PROVIDERS: ATTEND Family Medicine
DX: M20.12 Hallux valgus (acquired), left foot (principal); M20.11 Hallux valgus (acquired), right foot; I51.7 Cardiomegaly; R91.8 Other nonspecific abnormal finding of lung field

== ENCOUNTER 2021-02-14 08:57 | Outpatient (CLI) | payer MEDICARE ==
[2021-02-14 12:17] LABS: BASOPHILS % (AUTO) 0.4 %; EOSINOPHILS # (AUTO) 0.3 10^3/uL (0.0-0.7); EOSINOPHILS % (AUTO) 3.6 %; HCT - HEMATOCRIT 47.9 % (42.0-52.0); HGB - HEMOGLOBIN 14.4 g/dL (14.0-18.0); LYMPHOCYTES # (AUTO) 1.2 10^3/uL (1.5-3.5); LYMPHOCYTES % (AUTO) 14.5 %; MEAN CORPUSCULAR HEMOGLOBIN 26.9 pg (27.0-31.0); MEAN CORPUSCULAR HGB CONC 30.1 g/dL (32.0-36.0); MEAN CORPUSCULAR VOLUME 89.4 fL (80.0-94.0); MEAN PLATELET VOLUME 11.4 fL (7.4-11.4); MONOCYTES # (AUTO) 1.1 10^3/uL (0.0-1.0); MONOCYTES % (AUTO) 13.8 %; NEUTROPHILS # (AUTO) 5.5 10^3/uL (1.5-6.6); NEUTROPHILS % (AUTO) 67.2 %; PLT - PLATELET COUNT 226 10^3/uL (130-450); RED BLOOD COUNT 5.36 10^6/uL (4.70-6.10); RED CELL DISTRIBUTION WIDTH 14.8 % (12.0-15.0); WHITE BLOOD COUNT 8.3 x10^3/uL (4.8-10.8)
[2021-02-14 12:33] LABS: ALBUMIN 3.8 g/dL (3.2-5.5); ALBUMIN/GLOBULIN RATIO 1.4 (1.0-2.2); ALKALINE PHOSPHATASE 88 IU/L (42-121); ALT ALANINE AMINOTRANSFERASE 21 IU/L (10-60); AST ASPARTATE AMINOTRANSFERASE 15 IU/L (10-42); BILIRUBIN,TOTAL 1.2 mg/dL (0.2-1.0); BUN - BLOOD UREA NITROGEN 16 mg/dL (6-20); CARBON DIOXIDE - CO2 29 mmol/L (21-32); CHLORIDE 104 mmol/L (101-111); CHOLESTEROL 113 mg/dL; CREATININE 0.9 mg/dL (0.6-1.2); GFR - MDRD 81 (>89); GLUCOSE 94 mg/dL (70-100); HDL CHOLESTEROL 38 mg/dL; LDL CHOLESTEROL,CALCULATED 61 mg/dL; LDL/HDL RATIO 1.6 (<3.6); POTASSIUM 4.5 mmol/L (3.5-5.0); SODIUM 138 mmol/L (135-145); TOTAL PROTEIN 6.6 g/dL (6.7-8.2); TRIGLYCERIDES 70 mg/dL; VLDL CHOLESTEROL 14 mg/dL
== END 2021-02-14 23:59 | disposition home or self-care (01) ==
LOC: LAB.WCP 08:57
PROVIDERS: ATTEND Family Medicine
DX: I25.10 Atherosclerotic heart disease of native coronary artery without angina pectoris (principal)
CPT/HCPCS: 36415; 80053; 80061; 83721; 85025

== ENCOUNTER 2021-03-12 07:10 | Outpatient (CLI) | payer MEDICARE ==
--- NOTE | 2021-03-14 10:35 | Ultrasound Report ---
PROCEDURE: Retroperitoneal Limited INDICATIONS: ABDOMINAL AORTIC ANEURYSM TECHNIQUE: Real time scanning was performed of the aorta and iliac arteries, with image documentatio n. COMPARISON: 01/11/2020 and 11/27/2018. FINDINGS: Aorta: Proximal aortic diameter measures 3.2 x 3.3 cm. Mid-aorta measures 2.0 x 2.5 cm. Distal aor tic diameter is 3.3 x 3.4 cm. Iliac arteries: Right common iliac artery measures 1.4 x 1.4 cm. Left common iliac artery measures 1.3 x 1.5 cm. IMPRESSION: Abdominal aortic aneurysm with maximum diameter of 3.4 cm per Reviewed by: Verena Edwadr MD, PhD on 03/14/2021 10:34 AM PST Approved by: Verena Edward MD, PhD on 03/14/2021 10:34 AM PST Station ID: [id number]
== END 2021-03-12 07:11 | disposition home or self-care (01) ==
LOC: DI 07:10
PROVIDERS: ATTEND Family Medicine
DX: I71.4 Abdominal aortic aneurysm, without rupture (principal)

== ENCOUNTER 2021-05-17 19:09 | Outpatient (CLI) | payer MEDICARE ==
--- NOTE | 2021-05-18 12:46 | Ultrasound Report ---
PROCEDURE: Testicle INDICATIONS: LEFT TESTICULAR PAIN, EPIDIDYMAL CYST TECHNIQUE: Real-time scanning was performed of the scrotum and testicles, with image documentation. Color and p ulse Doppler interrogation was performed of both testicles. COMPARISON: 01/11/2020 FINDINGS: Right: Testicle is normal in size at 4.0 x 2.3 x 2.2 cm, and homogenous in echotexture. Epididymis is normal in overall size and morphology. There is a small hydrocele. No varicocele.. Overlying scro marta skin is normal in thickness. Testicular microcalcifications are noted. Left: Testicle is normal in size at 4.1 x 2.1 x 3.3 cm, and homogeneous in echotexture. Epididymis is normal in overall size and morphology. There is a moderate hydrocele. No varicocele. A 1 cm left e pididymal head cyst is unchanged. Overlying scrotal skin is normal in thickness. Testicular microca lcifications are noted. Doppler: Color and pulse Doppler demonstrate normal and symmetric arterial flow in both testicles. IMPRESSION: 1. 1 cm left epididymal head cyst without change compared to the prior ultrasound. 2. No hyperemia of the epididymis bilaterally to suggest epididymitis. 3. Testicular microcalcifications bilaterally are unchanged. 3. Bilateral hydroceles. Reviewed by: López Barbosa on 05/18/2021 12:45 PM PST Approved by: López Barbosa on 05/18/2021 12:45 PM PST Station ID: [id number]
== END 2021-05-17 19:10 | disposition home or self-care (01) ==
LOC: DI 19:09
PROVIDERS: ATTEND Internal Medicine
DX: N50.812 Left testicular pain (principal); N50.3 Cyst of epididymis; N43.3 Hydrocele, unspecified

== ENCOUNTER 2021-09-08 11:14 | Outpatient (CLI) | payer MEDICARE ==
--- NOTE | 2021-09-08 16:28 | Ultrasound Report ---
PROCEDURE: Duplex Lwr Ext Arterial Bilat INDICATIONS: PERIPHERAL VASCULAR DISEASE TECHNIQUE: Color and pulse Doppler interrogation was performed of both lower extremity arterial systems, with im age documentation. COMPARISON: None FINDINGS: Right lower extremity: Common femoral artery: 100 cm/sec, with triphasic flow. Deep femoral artery: 62 cm/sec, with triphasic flow. Proximal superficial femoral artery: 57 cm/sec, with triphasic flow. Mid superficial femoral artery: 55 cm/sec, with triphasic flow. Distal superficial femoral artery: 93 cm/sec, with triphasic flow. Popliteal artery: 28 cm/sec, with triphasic retrograde flow. Posterior tibial artery: 13 cm/sec, with biphasic and monophasic flow. Anterior tibial artery/dorsalis pedis: 57 cm/sec, with triphasic and biphasic flow. Wesley-scale imaging description: Moderate diffuse plaque Left lower extremity: Common femoral artery: 102 cm/sec, with triphasic flow. Deep femoral artery: 90 cm/sec, with triphasic flow. Proximal superficial femoral artery: 52 cm/sec, with triphasic flow. Mid superficial femoral artery: 51 cm/sec, with triphasic flow. Distal superficial femoral artery: 318 cm/sec, with triphasic flow. Popliteal artery: 33 cm/sec, with triphasic flow. Posterior tibial artery: 28 cm/sec, with triphasic flow. Anterior tibial artery/dorsalis pedis: 60 cm/sec, with triphasic flow. Wesley-scale imaging description: Moderate diffuse plaque IMPRESSION: Hemodynamically significant bilateral outflow stenoses. Reviewed by: Makenna Mccormick MD on 09/08/2021 4:27 PM PDT Approved by: Makenna Mccormick MD on 09/08/2021 4:27 PM PDT Station ID: [id number]
== END 2021-09-08 11:15 | disposition home or self-care (01) ==
LOC: DI 11:14
PROVIDERS: ATTEND Family Medicine
DX: I73.9 Peripheral vascular disease, unspecified (principal)
CPT/HCPCS: 93925

== ENCOUNTER 2022-02-10 08:46 | Outpatient (CLI) | payer MEDICARE ==
[2022-02-10 11:45] LABS: BASOPHILS % (AUTO) 0.2 %; EOSINOPHILS # (AUTO) 0.3 10^3/uL (0.0-0.7); EOSINOPHILS % (AUTO) 3.7 %; HCT - HEMATOCRIT 47.6 % (42.0-52.0); HGB - HEMOGLOBIN 14.2 g/dL (14.0-18.0); LYMPHOCYTES % (AUTO) 12.6 %; MEAN CORPUSCULAR HEMOGLOBIN 26.2 pg (27.0-31.0); MEAN CORPUSCULAR HGB CONC 29.8 g/dL (32.0-36.0); MEAN CORPUSCULAR VOLUME 87.7 fL (80.0-94.0); MEAN PLATELET VOLUME 10.5 fL (7.4-11.4); MONOCYTES % (AUTO) 12.3 %; NEUTROPHILS # (AUTO) 5.8 10^3/uL (1.5-6.6); NEUTROPHILS % (AUTO) 70.8 %; PLT - PLATELET COUNT 269 10^3/uL (130-450); RED BLOOD COUNT 5.43 10^6/uL (4.70-6.10); RED CELL DISTRIBUTION WIDTH 14.2 % (12.0-15.0); WHITE BLOOD COUNT 8.1 x10^3/uL (4.8-10.8)
[2022-02-10 12:40] LABS: ALBUMIN 3.8 g/dL (3.2-5.5); ALBUMIN/GLOBULIN RATIO 1.2 (1.0-2.2); ALKALINE PHOSPHATASE 86 IU/L (42-121); ALT ALANINE AMINOTRANSFERASE 15 IU/L (10-60); AST ASPARTATE AMINOTRANSFERASE 14 IU/L (10-42); BILIRUBIN,TOTAL 0.4 mg/dL (0.2-1.0); BUN - BLOOD UREA NITROGEN 23 mg/dL (6-20); CALCIUM 9.7 mg/dL (8.5-10.3); CARBON DIOXIDE - CO2 29 mmol/L (21-32); CHLORIDE 99 mmol/L (101-111); CHOL/HDL RATIO 3.2 (<5.0); CHOLESTEROL 124 mg/dL; CREATININE 1.1 mg/dL (0.6-1.2); GFR - MDRD 64 (>89); GLUCOSE 99 mg/dL (70-100); HDL CHOLESTEROL 39 mg/dL; LDL CHOLESTEROL,CALCULATED 71 mg/dL; LDL/HDL RATIO 1.8 (<3.6); SODIUM 136 mmol/L (135-145); TOTAL PROTEIN 6.9 g/dL (6.7-8.2); TRIGLYCERIDES 68 mg/dL; VLDL CHOLESTEROL 14 mg/dL
== END 2022-02-10 08:47 | disposition home or self-care (01) ==
LOC: LAB.N 08:46
PROVIDERS: ATTEND Physician Assistant
DX: E78.5 Hyperlipidemia, unspecified (principal); I25.810 Atherosclerosis of coronary artery bypass graft(s) without angina pectoris
CPT/HCPCS: 36415; 80053; 80061; 83721; 85025

== ENCOUNTER 2022-04-11 09:39 | Outpatient (CLI) | payer MEDICARE ==
--- NOTE | 2022-04-11 15:23 | Ultrasound Report ---
PROCEDURE: Retroperitoneal Limited INDICATIONS: AAA TECHNIQUE: Real time scanning was performed of the aorta and iliac arteries, with image documentatio n. COMPARISON: 03/02/2021 FINDINGS: Aorta: Proximal aortic diameter measures 3.2 x 3.2 cm. Mid-aorta measures 2.1 x 2.2 cm. Distal aor tic diameter is 3.6 x 3.6 cm. Iliac arteries: Right common iliac artery measures 1.2 x 1.3 cm. Left common iliac artery measures 1.4 x 1.5 cm. Moderate atherosclerotic plaques are noted throughout abdominal aorta. IMPRESSION: Abdominal aortic aneurysm now measures up to 3.6 cm in largest AP diameter in distal infrarenal abdom inal aorta compared to 3.4 cm of previous study. Extensive calcified plaques throughout abdominal aor ta. Reviewed by: Luisito Campos MD on 04/11/2022 3:21 PM PST Approved by: Luisito Campos MD on 04/11/2022 3:21 PM PST Station ID: [id number]
== END 2022-04-11 09:40 | disposition home or self-care (01) ==
LOC: DI 09:39
PROVIDERS: ATTEND Family Medicine
DX: I71.40 Abdominal aortic aneurysm, without rupture, unspecified (principal)

== ENCOUNTER 2023-01-11 11:00 | Day surgery (SDC) | payer MEDICARE ==
[~2023-01-11 11:00] MED LIST: ceFAZolin 2 GM VIAL ONE
[2023-01-11] MEDS ORDERED: LACTATED RINGERS 1,000 ML IV ONE ×2 (11:28→14:08)
[2023-01-11] MEDS ORDERED: BUPIVACAINE 0.25% PF 30 ML VIAL ONE (11:50)
[2023-01-11] MEDS ORDERED: NALOXONE 0.4 MG/ML VIAL IVP PRN (12:01)
[2023-01-11] MEDS ORDERED: fentaNYL 100 MCG/2 ML VIAL IVP PRN (12:01)
[2023-01-11] MEDS ORDERED: ATROPINE ABBOJECT 1 MG/10 ML SYRINGE IVP PRN (12:01)
[2023-01-11] MEDS ORDERED: ONDANSETRON 4 MG/2 ML VIAL IVP PRN ×2 (12:01→14:00)
[2023-01-11] MEDS ORDERED: HYDROmorphone 0.5 MG/0.5 ML SYRINGE IVP PRN ×2 (12:01→14:00)
[2023-01-11] MEDS ORDERED: METOCLOPRAMIDE 10 MG/2 ML VIAL IVP PRN (12:01)
[2023-01-11] MEDS ORDERED: ePHEDrine 50 MG/ML VIAL IVP PRN (12:01)
[2023-01-11] MEDS ORDERED: MORPHINE 2 MG/ML CARPUJECT IVP PRN (12:01)
--- NOTE | 2023-01-11 12:01 | ANESTHESIA ---
Pre-Anesthesia VS, & Labs - Diagnosis umbilical hernia - Procedure umbilical hernia repair Vital Signs: Temp Pulse Resp BP Pulse Ox O2 Flow Rate 36.6 C 99 16 161/96 H 95 01/11/23 11:16 01/11/23 11:16 01/11/23 11:16 01/11/23 11:16 01/11/23 11:16 Height: 5 ft 10 in Weight (kg): 91 kg Body Mass Index: 28.8 BMI Classification: Overweight - NPO >8 hours Home Medications and Allergies Home Medications: Ambulatory Orders Albuterol Sulf [Ventolin Hfa Inhaler] 1 - 2 puffs INH Q4HR PRN 01/08/23 Atorvastatin Calcium [Lipitor] 80 mg PO QPM 01/08/23 Felodipine [Felodipine ER] 5 mg PO DAILY 01/08/23 Fluticasone [Flonase] 1 sprays DEANGELO DAILY 01/08/23 Metoprolol Tartrate [Lopressor] 100 mg PO BID 01/08/23 Nitroglycerin [Nitrostat] 0.4 mg SL [id number] 01/08/23 Aspirin [Adult Aspirin Regimen] 81 mg PO DAILY 01/08/20 Valsartan 40 mg PO DAILY 01/08/20 Fluticasone/Salmeterol [Advair Hfa 230-21 Mcg Inhaler] 2 inhaler INH DAILY 01/09/20 Albuterol Sulf [Ventolin Hfa Inhaler] 1 - 2 puffs INH Q4HR PRN 01/08/23 Atorvastatin Calcium [Lipitor] 80 mg PO QPM 01/08/23 Felodipine [Felodipine ER] 5 mg PO DAILY 01/08/23 Fluticasone [Flonase] 1 sprays DEANGELO DAILY 01/08/23 Metoprolol Tartrate [Lopressor] 100 mg PO BID 01/08/23 Nitroglycerin [Nitrostat] 0.4 mg SL [id number] 01/08/23 Allergies/Adverse Reactions: Allergies Allergy/AdvReac Type Severity Reaction Status Date / Time No Known Drug Allergies Allergy Verified 06/04/20 13:42 Anes History & Medical History - Anesthetic History Anesthesia Complications: reports: No previous complications Family history of Anesthesia Complications: Denies Family history of Malignant Hyperthermia: Denies - Medical History Cardiovascular: reports: Congestive heart failure, Hypertension, High cholesterol, Coronary artery disease, Peripheral Vascular Disease, Atrial fibrillation, Other Pulmonary: reports: Asthma, Other Gastrointestinal: reports: None Urinary: reports: None Musculoskeletal: reports: None Endocrine/Autoimmune: reports: None Skin: reports: None Smoking Status: Never smoker - Surgical History General: reports: Appendectomy, Colonoscopy Eyes Ears Nose Throat (EENT): reports: Cataracts Cardiothoracic: reports: CABG, Coronary stent, Angioplasty Exam General: Alert, Oriented x3, Cooperative Dental: WNL Mouth Openin Fingerbreadth Neck Mobility: Normal Mallampati classification: III Respiratory: Rhonchi Cardiovascular: Other (A Fib) Plan Anesthesia Type: General Consent for Procedure(s) Verified and Reviewed: Yes Code Status: Attempt Resuscitation ASA classification: 3-Severe systemic disease Is this case an emergency?: No
--- NOTE | 2023-01-11 12:01 | HISTORY & PHYSICAL EXAMINATION ---
Chief Complaint - Chief Complaint Chief Complaint: painful hernia bulge History of Present Illness - History Obtained From Records Reviewed: yes History obtained from: pt Exam Limitations: hard of hearing - History of Present Illness HPI Comment/Other: painful incarcerated hernia bulge History - Past Medical History Cardiovascular: reports: Congestive heart failure, Hypertension, High cholesterol, Coronary artery disease, Peripheral Vascular Disease, Atrial fibrillation, Other Respiratory: reports: Asthma, Other Endocrine/Autoimmune: reports: None GI: reports: None : reports: None Psych: reports: None Musculoskeletal: reports: None Derm: reports: None MRSA Hx?: No - Past Surgical History General: reports: Appendectomy, Colonoscopy Cardiovascular: reports: CABG, Coronary stent, Angioplasty HEENT: reports: Cataracts Meds/Allgy - Home Medications Home Medications: Ambulatory Orders Medication Instructions Recorded Confirmed Aspirin [Adult Aspirin Regimen] 81 mg PO DAILY 01/08/20 01/11/23 Valsartan 40 mg PO DAILY 01/08/20 01/08/23 Fluticasone/Salmeterol [Advair Hfa 2 inhaler INH DAILY 01/09/20 01/11/23 230-21 Mcg Inhaler] Albuterol Sulf [Ventolin Hfa 1 - 2 puffs INH Q4HR PRN 01/08/23 01/08/23 Inhaler] Atorvastatin Calcium [Lipitor] 80 mg PO QPM 01/08/23 01/08/23 Felodipine [Felodipine ER] 5 mg PO DAILY 01/08/23 01/08/23 Fluticasone [Flonase] 1 sprays DEANGELO DAILY 01/08/23 01/08/23 Metoprolol Tartrate [Lopressor] 100 mg PO BID 01/08/23 01/08/23 Nitroglycerin [Nitrostat] 0.4 mg SL [id number] 01/08/23 01/08/23 - Allergies Allergies/Adverse Reactions: Allergies Allergy/AdvReac Type Severity Reaction Status Date / Time No Known Drug Allergies Allergy Verified 06/04/20 13:42 Review of Systems - Other Findings Other Findings: 10 pt ros as above otherwise unremarkable Exam - Vital Signs Vital Signs: Vital Signs x48h Temp Pulse Resp BP Pulse Ox 01/11/23 11:16 36.6 C 99 16 161/96 H 95 - Physical Exam General Appearance: positive: No acute distress, Alert Eyes Bilateral: positive: PERRL, EOMI ENT: positive: No signs of dehydration Neck: positive: No JVD, Trachea midline Respiratory: positive: No respiratory distress, Breath sounds nml Cardiovascular: positive: Regular rate & rhythm Abdomen: positive: No distention, Other (3 cm incarcerated hernian bulge umbilical area) Neurologic/Psychiatric: positive: Oriented x3 Conclusion/Plan - Problem List (1) Incarcerated umbilical hernia Conclusion/Plan: plan open repair with mesh and excision umbilical skin. parq held and consent obtained
[2023-01-11] MEDS ORDERED: PROPOFOL 200 MG/20 ML VIAL IVP ONE ×2 (12:11→13:43)
[2023-01-11] MEDS ORDERED: METOPROLOL 5 MG/5 ML VIAL IVP ONE (12:11)
[2023-01-11] MEDS ORDERED: LIDOCAINE-PF 2% 10 ML AMP SUBQ ONE (12:11)
[2023-01-11] MEDS ORDERED: ROCURONIUM 50 MG/5 ML VIAL ONE (12:11)
[2023-01-11] MEDS ORDERED: fentaNYL 100 MCG/2 ML VIAL ONE (12:50)
[2023-01-11] MEDS ORDERED: BUPIVACAINE 0.25% PF 30 ML VIAL SUBQ ONE (12:50)
[2023-01-11] MEDS ORDERED: LACTATED RINGERS 1,000 ML IV SCH (13:00)
[2023-01-11] MEDS ORDERED: SUGAMMADEX 200 MG/2 ML VIAL IVP ONE (13:32)
[2023-01-11] MEDS ORDERED: ePHEDrine 50 MG/ML VIAL IVP ONE (13:34)
[2023-01-11] MEDS ORDERED: HYDROcod/ACETAM 5/325 MG TABLET PO PRN (14:00)
--- NOTE | 2023-01-11 14:06 | OPERATIVE REPORT ---
Operative Report - General Procedure Date: 01/11/23 Planned Procedure: open repair incarcerated umbilical hernia Pre-Op Diagnosis: incarcerated umbilical hernia Procedure Performed: open repair incarcerated umbilical hernia Post Op Diagnosis: same - Procedure Note Primary Surgeon: kylee wiggins Anesthesia Technique: General ET tube, Local Pathology: incarcerated omentum and overlying sac and skin removed. not sent Estimated Blood Loss (mL): 2 Drain/Tube Type: Other (none) Indications: painful hernia bulge Findings: 5 cm hernia. 4.25 x 2.25 inch polypropylene mesh preperitoneal Complications: none - Other Other Information/Narrative: The patient was prepped identified brought to the operating room and placed in supine position. Sequential compression devices were placed. He was prepped and draped in a sterile fashion and given preoperative antibiotics. He had a 5 cm umbilical hernia bulge with attenuated thin overlying umbilical skin. An ell iptical incision measuring approximately 5 cm was made around the umbilicus. Dissection proceeded with cutting current cautery down to the hernia sac. The hernia and hernia sac was mobilized back to fascia. Peritoneum was released at the fascial defect. Fascial defect measured approximately 5 cm. Approximately 3 cm anterior of the the fascia the peritoneum was opened. Incarcerated omentum was removed with 2-0 Vicryl ties and clamps. The peritoneum was then closed over the remaining incarcerated omentum with a running 3-0 Vicryl suture. The preperitoneal space was carefully developed. Hemostasis was assured. 2-1/4 inch wide by 4-1/4 inch tall polypropylene mesh was placed preperitoneal and secured with approximately 10 interrupted 0 Ethibond sutures. Fascia was then closed over the mesh with three-point interrupted 0 Ethibond sutures. The mesh and fascial closure was without tension. Subcutaneous tissue was closed with interrupted 2-0 Vicryl suture. Buried interrupted subdermal 3-0 Vicryl sutures were then placed. Skin was closed with a running 4-0 Monocryl subcuticular suture. Steri-Strips and dressing were applied. Tolerated the procedure well was awakened and brought to recovery in good condition.
--- NOTE | 2023-01-11 15:06 | XRAY Report ---
PROCEDURE: Chest 1 View X-Ray INDICATIONS: cough, thick green sputum TECHNIQUE: One view of the chest was acquired. COMPARISON: 10/14/2020 FINDINGS: Surgical changes and devices: Multiple median sternotomy wires are in place. Lungs and pleura: Diffuse interstitial prominence. Patchy bibasilar airspace opacities. Possible sma ll bilateral pleural effusions. Mediastinum: Mediastinal contours appear normal. Heart size is enlarged. Bones and chest wall: No suspicious bony lesions. Overlying soft tissues appear unremarkable. IMPRESSION: Cardiomegaly with findings suggestive of pulmonary edema/CHF. Concurrent infectious or inflammatory p rocess not excluded if clinically appropriate. Reviewed by: Freedom Lorenzana MD on 01/11/2023 3:05 PM PDT Approved by: Freedom Lorenzana MD on 01/11/2023 3:05 PM PDT Station ID: [id number]
[2023-01-11 15:14] VITALS: BP 171/85; O2SAT 92
[2023-01-11] MEDS ORDERED: HYDROcod/ACETAM 5/325 MG TABLET ONE (15:25)
--- NOTE | 2023-01-11 20:36 | ANESTHESIA POST OP EVALUATION ---
Anesthesia Post Eval - Post Anesthesia Eval Vitals: Last Vital Signs Temp 36.5 C 01/11/23 14:46 Pulse 86 01/11/23 15:10 Resp 19 01/11/23 15:10 BP 171/85 H 01/11/23 15:10 Pulse Ox 92 01/11/23 15:10 O2 Flow Rate CV Function Including HR & BP: Stable Pain Control: Satisfactory Nausea & Vomiting: Negative Mental Status: Baseline Respiratory Status: Airway Patent, Other (patient had productive cough post operatively, covid test negative, patient states just coughing today. CXR done- see radiologist report. 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
== END 2023-01-11 11:01 | disposition home or self-care (01) ==
LOC: SDS 11:00
PROVIDERS: ATTEND Surgery
DX: K42.0 Umbilical hernia with obstruction, without gangrene (principal); R05.9 Cough, unspecified; R09.3 Abnormal sputum; I11.0 Hypertensive heart disease with heart failure; I50.9 Heart failure, unspecified; I48.91 Unspecified atrial fibrillation; I25.10 Atherosclerotic heart disease of native coronary artery without angina pectoris; J45.909 Unspecified asthma, uncomplicated
CPT/HCPCS: 49594; 71045; 87635; A9270; J7120

== ENCOUNTER 2023-02-13 07:26 | Outpatient (CLI) | payer MEDICARE ==
[2023-02-13 12:05] LABS: BASOPHILS % (AUTO) 0.3 %; EOSINOPHILS # (AUTO) 0.4 10^3/uL (0.0-0.7); EOSINOPHILS % (AUTO) 4.6 %; HGB - HEMOGLOBIN 13.8 g/dL (14.0-18.0); LYMPHOCYTES # (AUTO) 1.2 10^3/uL (1.5-3.5); LYMPHOCYTES % (AUTO) 15.4 %; MEAN CORPUSCULAR HEMOGLOBIN 27.2 pg (27.0-31.0); MEAN CORPUSCULAR VOLUME 90.6 fL (80.0-94.0); MEAN PLATELET VOLUME 11.3 fL (7.4-11.4); MONOCYTES # (AUTO) 0.9 10^3/uL (0.0-1.0); MONOCYTES % (AUTO) 11.4 %; NEUTROPHILS # (AUTO) 5.3 10^3/uL (1.5-6.6); NEUTROPHILS % (AUTO) 68.2 %; PLT - PLATELET COUNT 196 10^3/uL (130-450); RED BLOOD COUNT 5.08 10^6/uL (4.70-6.10); RED CELL DISTRIBUTION WIDTH 15.1 % (12.0-15.0); WHITE BLOOD COUNT 7.8 x10^3/uL (4.8-10.8)
[2023-02-13 12:16] LABS: ALBUMIN 4.1 g/dL (3.2-5.5); ALBUMIN/GLOBULIN RATIO 1.8 (1.0-2.2); ALKALINE PHOSPHATASE 90 IU/L (42-121); ALT ALANINE AMINOTRANSFERASE 12 IU/L (10-60); AST ASPARTATE AMINOTRANSFERASE 12 IU/L (10-42); BILIRUBIN,TOTAL 0.7 mg/dL (0.2-1.0); BUN - BLOOD UREA NITROGEN 23 mg/dL (6-20); CALCIUM 9.9 mg/dL (8.5-10.3); CARBON DIOXIDE - CO2 31 mmol/L (21-32); CHLORIDE 106 mmol/L (101-111); CHOLESTEROL 103 mg/dL; CREATININE 0.9 mg/dL (0.6-1.3); GFR - MDRD 81 (>89); GLUCOSE 97 mg/dL (74-104); HDL CHOLESTEROL 34 mg/dL; LDL CHOLESTEROL,CALCULATED 57 mg/dL; LDL/HDL RATIO 1.7 (<3.6); POTASSIUM 4.5 mmol/L (3.5-4.5); SODIUM 140 mmol/L (135-145); TOTAL PROTEIN 6.4 g/dL (6.4-8.9); TRIGLYCERIDES 61 mg/dL (48-352); VLDL CHOLESTEROL 12 mg/dL
== END 2023-02-13 07:27 | disposition home or self-care (01) ==
LOC: LAB.N 07:26
PROVIDERS: ATTEND Physician Assistant
DX: I10 Essential (primary) hypertension (principal); E78.5 Hyperlipidemia, unspecified
CPT/HCPCS: 36415; 80053; 80061; 83721; 85025

== ENCOUNTER 2023-07-25 09:39 | Outpatient (CLI) | payer MEDICARE ==
[2023-07-25 11:58] LABS: ESTIMATED AVERAGE GLUCOSE 120 mg/dL (70-100); HEMOGLOBIN A1c% 5.8 % (4.27-6.07)
[2023-07-25 12:18] LABS: THYROID STIMULATING HORMONE 1.94 uIU/mL (0.34-5.60)
[2023-07-25 12:19] LABS: ALBUMIN/GLOBULIN RATIO 1.8 (1.0-2.2); BILIRUBIN,TOTAL 0.4 mg/dL (0.2-1.0); CALCIUM 10.7 mg/dL (8.5-10.3); CREATININE 1.1 mg/dL (0.6-1.3); POTASSIUM 4.7 mmol/L (3.5-4.5); TOTAL PROTEIN 6.2 g/dL (6.4-8.9)
== END 2023-07-25 09:40 | disposition home or self-care (01) ==
LOC: LAB.N 09:39
PROVIDERS: ATTEND Family Medicine
DX: R29.898 Other symptoms and signs involving the musculoskeletal system (principal); M79.89 Other specified soft tissue disorders
CPT/HCPCS: 36415; 80053; 83036; 83880; 84443

== ENCOUNTER 2023-09-20 10:31 | Outpatient (CLI) | payer MEDICARE | END 2023-09-20 10:32 | disposition home or self-care (01) | LOC: DI 10:31 | PROVIDERS: ATTEND Physician Assistant | DX: I35.0 Nonrheumatic aortic (valve) stenosis (principal); I50.22 Chronic systolic (congestive) heart failure; I25.810 Atherosclerosis of coronary artery bypass graft(s) without angina pectoris; R22.43 Localized swelling, mass and lump, lower limb, bilateral | CPT/HCPCS: 93307 ==

== ENCOUNTER 2023-09-25 09:06 | Outpatient (CLI) | payer MEDICARE ==
--- NOTE | 2023-09-25 19:13 | XRAY Report ---
PROCEDURE: Ribs w/PA Chest 3+V LT INDICATIONS: CHEST PAIN, UNSPECIFIED TECHNIQUE: 2 views of the ribs were acquired, along with a single view chest. COMPARISON: None. FINDINGS: Surgical changes and devices: Midline sternal wires Bones and chest wall: No fractures or dislocations. No suspicious bony lesions. Overlying soft tis sues appear unremarkable. Lungs and pleura: No pleural effusions or pneumothorax. Lungs appear clear. Mediastinum: Heart size enlarged. No vascular congestion. IMPRESSION: No displaced rib fracture or pneumothorax. Cardiomegaly without vascular congestion Reviewed by: Terence Downey MD on 09/25/2023 6:12 PM AKDT Approved by: Terence Downey MD on 09/25/2023 6:12 PM AKDT Station ID: [id number]
== END 2023-09-25 09:07 | disposition home or self-care (01) ==
LOC: DI.N 09:06
PROVIDERS: ATTEND Nurse Practitioner
DX: R07.9 Chest pain, unspecified (principal); I51.7 Cardiomegaly